=== PATIENT | female | born 1970 | race Caucasian/White ===

== ENCOUNTER 2025-07-04 22:33 | Emergency (ER) | payer OTHER, SELFPAY ==
[2025-07-04 22:36] VITALS: BP 130/78
--- NOTE | 2025-07-05 01:01 | ED.GENMED ---
History of Present Illness
General
Chief Complaint: Skin Surface Trauma
Source: patient and spouse
Exam Limitations: none
Time Seen by Provider: 07/04/25 23:26
Nursing documentation reviewed up to this point in time: agreed with
History of Present Illness
History of Present Illness:
55-year-old female past ministry of seizure disorder presenting to the emergency department today with concerns of a laceration to her left forearm. She claims she was kicked by a small horse prior to arrival that caused a laceration. This was
through the sleeve of a bathrobe. Denies any visible contamination to the area. She is unsure when her last tetanus shot was. Denies any numbness weakness or changes in mobility of her hand wrist or elbow.
Past History
Past History
ED Past Medical History: None
ED Past Surgical History: None
Social History
Drug: None
Personal:
Living: with family
Review of Systems
Review of Systems
Allergies reviewed?: Yes
All Other Systems: ROS reviewed and negative except as documented in HPI and ROS
Phy Exam
Physical Exam
Physical Exam:
GENERAL: Alert , in no apparent distress
EYE: pupils equal and reactive
NECK: Supple, no significant adenopathy.
ENT: o/p clr, mmm.
CARDIAC: Regular rate and rhythm .
LUNGS: Clear breath sounds bilaterally, no acute respiratory distress, no wheezes/rales/rhonchi
ABDOMEN: Soft, without focal tenderness, no r/g, no cvat
NEUROLOGICAL: Alert and oriented, no focal neuro deficits
SKIN: 8 cm laceration shape of an L to the left forearm. Deep to the subcutaneous tissue. No involvement of muscle or tendon.
e warm and dry, skin intact.
MUSCULOSKELETAL: No edema, well perfused.
PSYCH: Normal and appropriate interaction.
Course
Orders/Labs/Results
Orders:
Orders
07/04/25 22:46
Forearm, Left 2 View [CR Forearm - Left 2 View] Urgent
Comment:
Reason For Exam: Kick by horse to lateral forearm
07/05/25 00:20
Cephalexin Monohydrate [Keflex] 500 mg PO NOW STA
Tetanus/Diphth/Acelpertussis [Adacel] 0.5 ml IM .ONCE ONE
Vital Signs
Initial and Last Documented VS:
Initial Vital Signs
Temp Pulse Resp BP Pulse Ox
98.5 F 78 16 130/78 100
07/04/25 22:36 07/04/25 22:36 07/04/25 22:36 07/04/25 22:36 07/04/25 22:36
Last Documented Vital Signs
Temp Pulse Resp BP Pulse Ox
98.5 F 79 18 135/72 100
07/04/25 22:36 07/05/25 01:11 07/05/25 01:11 07/05/25 01:11 07/05/25 01:11
Procedures
Laceration Closure
Left forearm:
Status of Wound: clean
Size of Wound in cm: 8
Description of Wound Edges: sharp and surrounded by abrasion
Preparation: cleaned with saline
Anesthesia: 1% Lidocaine with epi
Revision/Debridement: minor revision
Wound exploration: explored to base- no FB and no tendon involvement
Type of Closure: layered closure and interrupted sutures
Skin Closure Material: 3-0 nylon and 4-0 vicryl
Number of sutures: 20
Additional information:
Seventeen 3-0 nylon external simple interrupted as well as three 4-0 Vicryl deep dermal
MDM/Problems Addressed
MDM/Problems Addressed:
55-year-old female presenting to the emergency department today with concerns of a laceration of her left forearm from getting kicked by a horse prior to arrival. X-ray without evidence of fracture or foreign body. Area was cleaned thoroughly but
very clean in appearance. Laceration was somewhat large at 8 cm deep to the subcutaneous tissue no apparent muscle or tendon involvement good range of motion and strength of the distal forearm wrist and hand. Neurologically intact. This was
thoroughly irrigated with over a liter of saline. 3 deep dermal stitches were placed with dissolving Vicryl stitch as well as 17 external simple interrupted stitches. Due to the large nature of the laceration and potential dirty exposure patient
started on antibiotics as prophylaxis. Also given updated tetanus shot. Otherwise patient stable for outpatient management return precautions given.
*Pulse Oximetry
SaO2: 100
Oxygen Mode of Delivery: Room air
Patient hypoxic: no (100)
*Critical Care Note
Total Time (30-74mins, 75-104mins- exclusive of procedures): Not Applicable
ED Attending Note
-
Portions of this chart may have been created with voice recognition software.� Occasional wrong word or��sound alike� substitutions may have occurred due to the inherent limitations of voice recognition software.
Discharge Plan
Departure
Patient Disposition: Home (Routine Discharge)
Date of Disposition: 07/05/25
Time of Disposition: 01:01
Patient with high blood pressure during this ER visit?: No
Condition: Good
Covid-19: Not Applicable
Discharge Problem:
Arm laceration
Instructions: Laceration Repair With Stitches (DC)
Prescriptions:
New
cephalexin 500 mg capsule
500 mg PO TID 3 Days Qty: 9 0RF
No Action
multivitamin [Daily Multiple] 1 EACH tablet
1 ea PO DAILY
oxycodone-acetaminophen 5 MG/325 MG tablet
1 tab PO Q4HPRN PRN (Reason: pain) Qty: 10 0RF
tamsulosin 0.4 MG capsule
0.4 mg PO DAILY Qty: 6 0RF
ibuprofen 600 MG tablet
600 mg PO Q6 Qty: 20 0RF
Referrals:
[place] MD [Family Provider, Family Practice]
Activity Restrictions/Additional Instructions:
You came to the emergency department today with concerns of a laceration. This was closed with 3 deep stitches and 17 external stitches that need to be removed in 14 days. Please keep the area clean covered and return for any evidence of
infection. Return for any worsening, new or concerning symptoms.
Interventions
Interventions:
*Risk Screen - Suicide Last Done: 07/04/25 22:36
*General Assessment Last Done: 07/04/25 22:36
*Neglect/Abuse Screening Last Done: 07/04/25 22:36
*ED- Fall Risk Assessment Last Done: 07/04/25 22:36
*ED COVID-19 Vaccine History Last Done: 07/04/25 22:36
*Nursing Disposition Last Done: 07/05/25 01:11
ED-Skin Assessment Last Done: 07/04/25 23:46
Discharge Date and Time
Discharge Date/Time: 07/05/25 01:12
Print Language: SERBIAN
[2025-07-05] MEDS: KEFLEX 500 MG PO (01:03)
[2025-07-05] MEDS: ADACEL 0.5 ML IM (01:03)
[2025-07-05 01:11] VITALS: BP 135/72
== END 2025-07-05 01:12 | disposition home or self-care (01) ==
LOC: EMR 22:33
PROVIDERS: EMERGENCY PHYSICIAN Emergency Medicine; FAMILY PHYSICIAN Family Medicine
DX: S51.812A Laceration without foreign body of left forearm, initial encounter (principal); G40.909 Epilepsy, unspecified, not intractable, without status epilepticus; Z23 Encounter for immunization; W55.12XA Struck by horse, initial encounter
CPT/HCPCS: 99283; 12034; 90471; 73090; 90715